=== PATIENT | female | born 1970 | race Hispanic/Latino ===

== ENCOUNTER 2018-06-12 05:26 | Inpatient (IN) | payer OTHER ==
[2018-06-12 06:14] LABS: Absolute Lymphocytes (CBC) 1.9 K/uL (0.7-4.9); Absolute Monocytes 0.3 K/uL (0.1-1.3); Absolute Neutrophil 4.1 K/uL (1.8-8.0); Basophils % 0.6 % (0-1.3); Hematocrit 41.7 % (36.0-45.0); Lymphocytes % 29.7 % (15.3-44.8); MCH 31.4 pg (27.0-35.0); MPV 9.9 fL (7.6-11.3); Monocytes % 4.8 % (3.3-12.3); RBC Red Blood Cell Count 4.53 M/uL (3.86-4.86)
[2018-06-12 06:37] LABS: Albumin 3.9 g/dL (3.4-5.0); Bilirubin Direct 0.1 mg/dL (0-0.2); Bilirubin Total 0.4 mg/dL (0.2-1.0); Magnesium 2.1 mg/dL (1.8-2.4); Protein, Total 7.5 g/dL (6.4-8.2); Troponin (Emerg Dept Use Only) 0.88 ng/mL (0.0-0.045)
[2018-06-12] MEDS ORDERED: ASPIRIN 81 MG CHEWABLE TABLET ONE (06:52)
[2018-06-12] MEDS ORDERED: ENOXAPARIN 100 MG/ML SYR SQ ONE (07:20)
[2018-06-12] MEDS ORDERED: PRASUGREL (EFFIENT) 10 MG TAB ONE (07:22)
--- NOTE | 2018-06-12 07:29 | ER ---
Nurse's Notes [facility] Name: Clare Lowry Age: 47 yrs Sex: Female : 1970 Arrival Date: 06/12/2018 Time: 05:27 Bed 17 Private MD: Diagnosis: Non-ST elevation (NSTEMI) myocardial infarction Presentation: 06/12 05:39 Presenting complaint: Patient states: "Tuesday I woke up and started having chest jd3 pains after drinking some coffee, this lasted about 15 min. Today I woke up and took some Mucinex daytime and I started having the chest pains again. I am also feeling nauseous. I moved some heavy stuff at work last week, but I wasn't sure if that could cause this or what.". Transition of care: patient was not received from another setting of care. Onset of symptoms was June 12, 2018. Risk Assessment: Do you want to hurt yourself or someone else? Patient reports no desire to harm self or others. Initial Sepsis Screen: Does the patient meet any 2 criteria? No. Patient's initial sepsis screen is negative. Does the patient have a suspected source of infection? No. Patient's initial sepsis screen is negative. Care prior to arrival: None. 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 jd3 Historical: - Allergies: 05:46 No Known Allergies; jd3 - Home Meds: 05:46 Zyrtec Oral [Active]; Flonase Nasal [Active]; jd3 - PMHx: 05:46 None; jd3 - PSHx: 05:46 None; jd3 - Immunization history:: Adult Immunizations up to date, Flu vaccine is up to date. - Social history:: Smoking status: Patient/guardian denies using tobacco. - Ebola Screening: : Patient negative for fever greater than or equal to 101.5 degrees Fahrenheit, and additional compatible Ebola Virus Disease symptoms. Screenin:50 Abuse screen: Denies threats or abuse. Nutritional screening: No deficits noted. jd3 Tuberculosis screening: No symptoms or risk factors identified. Fall Risk Ambulatory Aid- None/Bed Rest/Nurse Assist (0 pts). Gait- Normal/Bed Rest/Wheelchair (0 pts) Mental Status- Oriented to own ability (0 pts). Total Musa Fall Scale indicates No Risk (0-24 pts). Assessment: 05:48 General: Appears uncomfortable, Behavior is calm, cooperative, appropriate for age. jd3 Pain: Complains of pain in chest Pain does not radiate. Pain currently is 4 out of 10 on a pain scale. Quality of pain is described as pressure, Pain began suddenly. Neuro: Level of Consciousness is awake, alert, obeys commands, Oriented to person, place, time, situation, Appropriate for age. Cardiovascular: Heart tones S1 S2 present Capillary refill < 3 seconds Patient's skin is warm and dry. Rhythm is sinus rhythm. Respiratory: Airway is patent Respiratory effort is even, unlabored, Respiratory pattern is regular, symmetrical, Breath sounds are clear bilaterally. Denies shortness of breath. GI: Abdomen is round non-distended, Bowel sounds present X 4 quads. Abd is soft and non tender X 4 quads. Reports nausea, Patient currently denies abdominal pain, constipation, diarrhea, vomiting. : No signs and/or symptoms were reported regarding the genitourinary system. EENT: No signs and/or symptoms were reported regarding the EENT system. Derm: Skin is intact, Skin is dry, Skin is normal, Skin temperature is warm. Musculoskeletal: Circulation, motion, and sensation intact. Range of motion: intact in all extremities. 06:35 Reassessment: X-ray at bedside. jd3 06:35 Reassessment: Patient appears in no apparent distress at this time. Patient and/or jd3 family updated on plan of care and expected duration. Pain level reassessed. Patient is alert, oriented x 3, equal unlabored respirations, skin warm/dry/pink. 06:43 Reassessment: provider at bedside discussing plan of care with pt. jd3 07:00 Reassessment: RECD REPORT FROM ATTILA KEY. 47YO HF P/W CP AFTER DRINKING COFFEE. EKG bp UNREMARKABLE, INITIAL TROPONIN POSITIVE AT 0.88. DISPOSITION PENDING. VS STABLE ON MONITOR. 07:51 Reassessment: ADMIT IN PROCESS, BED REQUEST SUBMITTED. VS STABLE ON MONITOR, FAMILY AT bp B/S. Vital Signs: 05:46 BP 177 / 96; Pulse 88; Resp 16 S; Temp 99.2(O); Pulse Ox 97% on R/A; Weight 90.72 kg jd3 (R); Height 5 ft. 2 in. (157.48 cm) (R); Pain 4/10; 06:40 BP 155 / 93; Pulse 76; Resp 14 S; Pulse Ox 98% on R/A; Pain 4/10; jd3 07:00 BP 144 / 89; Pulse 80; Resp 16; Pulse Ox 96% ; bp 07:52 BP 153 / 90; Pulse 71; Resp 15; Pulse Ox 100% ; bp 08:55 BP 152 / 80; Pulse 73; Resp 13; Pulse Ox 100% ; bp 05:46 Body Mass Index 36.58 (90.72 kg, 157.48 cm) jd3 ED Course: 05:27 Patient arrived in ED. am2 05:29 Attila Watson, RN is Primary Nurse. jd3 05:36 Rolando Sue MD is Attending Physician. gs 05:44 Triage completed. jd3 05:47 Arm band placed on. EKG completed in triage. Results shown to MD. jd3 05:50 Patient has correct armband on for positive identification. Bed in low position. Call j light in reach. Side rails up X 1. Adult w/ patient. monitoring manager on. Pulse ox on. NIBP on. 05:50 Warm blanket given. jd3 05:51 Patient maintains SpO2 saturation greater than 95% on room air. jd3 06:05 Inserted saline lock: 20 gauge in right antecubital area, using aseptic technique. jd3 Blood collected. 06:07 Basic Metabolic Panel Sent. jd3 06:07 CBC with Diff Sent. jd3 06:07 LFT's Sent. jd3 06:08 Magnesium Sent. jd3 06:08 NT PRO-BNP Sent. jd3 06:08 Troponin (emerg Dept Use Only) Sent. jd3 06:43 XRAY Chest (1 view) In Process Unspecified. EDMS 06:49 Verbal reassurance given. jd3 06:57 Scooby Ramey PA is PHCP. jr8 07:28 Bozena Rojo MD is Hospitalizing Provider. jr8 09:12 No provider procedures requiring assistance completed. Patient admitted, IV remains in bp place. Administered Medications: 06:49 Drug: Aspirin Chewable Tablet 324 mg Route: PO; jd3 07:17 Follow up: Response: No adverse reaction bp 07:17 Drug: Lovenox 1 mg/kg Route: Sub-Q; Site: right lower abdomen; bp 07:53 Follow up: Response: No adverse reaction bp 07:17 Drug: Effient 60 mg Route: PO; bp 07:53 Follow up: Response: No adverse reaction bp Outcome: 07:28 Decision to Hospitalize by Provider. jr8 09:11 Admitted to Tele accompanied by tech, family with patient, via wheelchair, room 428, bp with chart, Report called to ZAIN KEY 09:11 Condition: stable 09:11 Instructed on the need for admit. 09:32 Patient left the ED. bp Signatures: Dispatcher [employer] EDMS Scooby Ramey PA PA jr8 Ct Ozuna Gregory, MD MD gs Davies, Jonathon, RN RN jd3 Soto Bustillos RN RN bp Corrections: (The following items were deleted from the chart) 05:51 05:48 Cardiovascular: Heart tones S1 S2 present Capillary refill < 3 seconds Patient's jd3 skin is warm and dry. Rhythm is regular jd3
--- NOTE | 2018-06-12 07:29 | EDPHYS ---
Physician Documentation [facility] Name: Clare Lowry Age: 47 yrs Sex: Female : 1970 Arrival Date: 06/12/2018 Time: 05:27 Bed 17 Private MD: ED Physician Rolando Sue HPI: 06/12 05:57 This 47 yrs old Female presents to ER via Ambulatory with complaints of Chest gs Pain. 05:57 The patient or guardian reports chest pain that is located primarily in the anterior gs chest wall. Onset: this morning, today. The pain does not radiate. Associated signs and symptoms: Pertinent negatives: shortness of breath. The chest pain is described as a heaviness. Duration: The patient or guardian reports multiple episodes, that have now resolved, the episodes last approximately 15 minute(s), had similar episode Tuesday lasted 15 minutes was different felt sob and was diaphoretic. Severity of pain: At its worst the pain was moderate in the emergency department the pain has resolved and did so just prior to arrival. 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 jd3 Historical: - Allergies: 05:46 No Known Allergies; jd3 - Home Meds: 05:46 Zyrtec Oral [Active]; Flonase Nasal [Active]; jd3 - PMHx: 05:46 None; jd3 - PSHx: 05:46 None; jd3 - Immunization history:: Adult Immunizations up to date, Flu vaccine is up to date. - Social history:: Smoking status: Patient/guardian denies using tobacco. - Ebola Screening: : Patient negative for fever greater than or equal to 101.5 degrees Fahrenheit, and additional compatible Ebola Virus Disease symptoms. ROS: 05:57 All other systems are negative. gs 16:53 Constitutional: Negative for fever, chills, and weight loss. jr8 16:53 Cardiovascular: Positive for chest pain. Exam: 05:57 Head/Face: Normocephalic, atraumatic. Eyes: Pupils equal round and reactive to light, gs extra-ocular motions intact. Lids and lashes normal. Conjunctiva and sclera are non-icteric and not injected. Cornea within normal limits. Periorbital areas with no swelling, redness, or edema. ENT: Nares patent. No nasal discharge, no septal abnormalities noted. Tympanic membranes are normal and external auditory canals are clear. Oropharynx with no redness, swelling, or masses, exudates, or evidence of obstruction, uvula midline. Mucous membranes moist. Neck: Trachea midline, no thyromegaly or masses palpated, and no cervical lymphadenopathy. Supple, full range of motion without nuchal rigidity, or vertebral point tenderness. No Meningismus. Chest/axilla: Normal chest wall appearance and motion. Nontender with no deformity. No lesions are appreciated. Cardiovascular: Regular rate and rhythm with a normal S1 and S2. No gallops, murmurs, or rubs. Normal PMI, no JVD. No pulse deficits. Respiratory: Lungs have equal breath sounds bilaterally, clear to auscultation and percussion. No rales, rhonchi or wheezes noted. No increased work of breathing, no retractions or nasal flaring. Abdomen/GI: Soft, non-tender, with normal bowel sounds. No distension or tympany. No guarding or rebound. No evidence of tenderness throughout. Back: No spinal tenderness. No costovertebral tenderness. Full range of motion. Skin: Warm, dry with normal turgor. Normal color with no rashes, no lesions, and no evidence of cellulitis. MS/ Extremity: Pulses equal, no cyanosis. Neurovascular intact. Full, normal range of motion. Neuro: Awake and alert, GCS 15, oriented to person, place, time, and situation. Cranial nerves II-XII grossly intact. Motor strength 5/5 in all extremities. Sensory grossly intact. Cerebellar exam normal. Normal gait. 05:57 Constitutional: The patient appears alert, awake. 05:57 ECG was reviewed by the Attending Physician. Vital Signs: 05:46 BP 177 / 96; Pulse 88; Resp 16 S; Temp 99.2(O); Pulse Ox 97% on R/A; Weight 90.72 kg jd3 (R); Height 5 ft. 2 in. (157.48 cm) (R); Pain 4/10; 06:40 BP 155 / 93; Pulse 76; Resp 14 S; Pulse Ox 98% on R/A; Pain 4/10; jd3 07:00 BP 144 / 89; Pulse 80; Resp 16; Pulse Ox 96% ; bp 07:52 BP 153 / 90; Pulse 71; Resp 15; Pulse Ox 100% ; bp 08:55 BP 152 / 80; Pulse 73; Resp 13; Pulse Ox 100% ; bp 05:46 Body Mass Index 36.58 (90.72 kg, 157.48 cm) jd3 MDM: 05:53 Patient medically screened. gs 05:57 Differential diagnosis: acute myocardial infarction, coronary artery disease pleurisy, gs pneumonia. Data reviewed: vital signs, nurses notes. Counseling: I had a detailed discussion with the patient and/or guardian regarding: the presence of at least one elevated blood pressure reading (>120/80) during this emergency department visit. Special discussion: I have referred the patient to see his PCP for further evaluation of high blood pressure. 06/12 05:56 Order name: Basic Metabolic Panel; Complete Time: 06:41 06/12 05:56 Order name: CBC with Diff; Complete Time: 06:41 06/12 05:56 Order name: LFT's; Complete Time: 06:41 06/12 05:56 Order name: Magnesium; Complete Time: 06:41 06/12 05:56 Order name: NT PRO-BNP; Complete Time: 06:41 06/12 05:56 Order name: Troponin (emerg Dept Use Only); Complete Time: 06:41 06/12 05:56 Order name: XRAY Chest (1 view); Complete Time: 08:03 06/12 05:56 Order name: EKG; Complete Time: 05:57 06/12 05:56 Order name: Cardiac monitoring; Complete Time: 06:03 06/12 05:56 Order name: EKG - Nurse/Tech; Complete Time: 06:04 06/12 05:56 Order name: IV Saline Lock; Complete Time: 06:06 06/12 05:56 Order name: Labs collected and sent; Complete Time: 06:06 06/12 05:56 Order name: O2 Per Protocol; Complete Time: 06:06 06/12 05:56 Order name: O2 Sat Monitoring; Complete Time: 06:07 gs EC:57 Rate is 79 beats/min. MN interval is normal. QRS interval is normal. QT interval is gs normal. T waves are Normal. No ST changes noted. Clinical impression: Abnormal EKG without significant change and LVH. Interpreted by me. Administered Medications: 06:49 Drug: Aspirin Chewable Tablet 324 mg Route: PO; jd3 07:17 Follow up: Response: No adverse reaction bp 07:17 Drug: Lovenox 1 mg/kg Route: Sub-Q; Site: right lower abdomen; bp 07:53 Follow up: Response: No adverse reaction bp 07:17 Drug: Effient 60 mg Route: PO; bp 07:53 Follow up: Response: No adverse reaction bp Disposition: 06/12/18 07:28 Hospitalization ordered by Bozena Rojo for Inpatient Admission. Preliminary diagnosis is Non-ST elevation (NSTEMI) myocardial infarction. - Bed requested for Telemetry/MedSurg (Inpatient). - Status is Inpatient Admission. bp - Condition is Stable. - Problem is new. - Symptoms have improved. UTI on Admission? No Signatures: Dispatcher [employer] EDMS Mary Baeza Josh, PA PA jr8 Rolando Sue MD MD gs Davies, Jonathon, RN RN jSoto Shea RN RN bp Corrections: (The following items were deleted from the chart) 08:47 07:28 Hospitalization Ordered by Bozena Rojo MD for Inpatient Admission. Preliminary bd diagnosis is Non-ST elevation (NSTEMI) myocardial infarction. Bed requested for Telemetry/MedSurg (Inpatient). Status is Inpatient Admission. Condition is Stable. Problem is new. Symptoms have improved. UTI on Admission? No. jr8 09:32 08:47 06/12/2018 07:28 Hospitalization Ordered by Bozena Rojo MD for Inpatient bp Admission. Preliminary diagnosis is Non-ST elevation (NSTEMI) myocardial infarction. Bed requested for Telemetry/MedSurg (Inpatient). Status is Inpatient Admission. Condition is Stable. Problem is new. Symptoms have improved. UTI on Admission? No. bd
--- NOTE | 2018-06-12 08:02 | RAD REPORT ---
EXAM DESCRIPTION: RAD - Chest Single View - 06/12/2018 6:43 am CLINICAL HISTORY: Chest pain COMPARISON: None. TECHNIQUE: AP portable chest image was obtained 0637 hours . FINDINGS: Lungs are clear. Heart and vasculature are normal. No measurable pleural effusion and no p neumothorax. No acute bony abnormality seen. No acute aortic findings suspected. IMPRESSION: No acute cardiopulmonary process.
[2018-06-12] MEDS ORDERED: MORPHINE 4 MG/ML SYR IV PRN (09:33)
[2018-06-12] MEDS ORDERED: ONDANSETRON 4 MG/2 ML VIAL IV PRN (09:33)
[2018-06-12] MEDS ORDERED: ACETAMINOPHEN 500 MG TAB PO PRN (09:33)
[2018-06-12] MEDS ORDERED: PANTOPRAZOLE 40MG TABLET PO ONE (09:55)
--- NOTE | 2018-06-12 10:02 | EKG ---
Test Date: 2018-06-12 Test Time: 05:47:35 Coil Binder: CHIVO MEASUREMENT RESULTS: Intervals: Rate: 79 TX: 178 QRSD: 84 QT: 388 QTc: 444 [place]: P: 23 TX: 178 QRS: -13 T: 61 INTERPRETIVE STATEMENTS: Normal sinus rhythm Voltage criteria for left ventricular hypertrophy Abnormal ECG No previous ECG available for comparison Electronically Signed On 06-12-18 10:01:34 CDT by Bebo Bob
[2018-06-12 12:44] LABS: Urine Appearance CLOUDY; Urine Bilirubin NEGATIVE (NEG); Urine Blood NEGATIVE (NEG); Urine Color YELLOW; Urine Glucose NEGATIVE (NEG); Urine Protein NEGATIVE (NEG); Urine pH 6.5 (5.0-7.0)
[2018-06-12 13:24] LABS: Urine Bacteria 20-50 /HPF (<20); Urine Culture Reflex Order REFLEXED; Urine RBC NONE SEEN /HPF (NONE SEEN)
[2018-06-12] MEDS ORDERED: CETIRIZINE HCL 5 MG TABLET PO PRN (13:24)
--- NOTE | 2018-06-12 14:59 | P.HP ---
Certification for Inpatient Patient admitted to: Inpatient With expected LOS: >2 Midnights Patient will require the following post-hospital care: None Practitioner: I am a practitioner with admitting privileges, knowledge of patient current condition, hospital course, and medical plan of care. Services: Services provided to patient in accordance with Admission requirements found in Title 42 Section 412.3 of the Code of Federal Regulations Patient History Date of Service: 06/12/18 Primary Care Provider: None Reason for admission: Chest pain History of Present Illness: This is a 47-year-old female with no significant past medical history who presented to the ED complaining of having some chest pain. Patient stated on Tuesday she started noticing that she was having some chest pain on the left side which was not radiating anywhere which is intermittent in nature. Patient was still and on the left side of the chest. Patient stated that she also had associated shortness of breath nausea and sweating at that time. Pain at that time however did resolve and patient went about doing her normal activities. This morning however pain returned and this patient decided to come to the ER for further workup. Patient denies having any fever chills abdominal pain or any other associated symptoms. In the ER patient was found to have elevated troponin with nonspecific EKG changes thus was admitted to the hospital for further workup Allergies No Known Allergies Allergy (Verified 06/12/18 10:44) Home Medications: Cetirizine HCl [Zyrtec*] 1 tab PO DAILYPRN PRN 06/12/18 Fluticasone [Flonase 50MCG Nasal [place]*] 2 sprays IH DAILYPRN PRN 06/12/18 Ibuprofen [Advil] 200 mg PO DAILYPRN PRN 06/12/18 - Past Medical/Surgical History Has patient received pneumonia vaccine in the past: No Diabetic: No -: seasonal allergies -: C- section x1 -: Tubal ligation - Family History Family History: Reviewed- Non-Contributory - Family History Mother -: Hypertension, Diabetes, Other (see notes) Notes: Thyroid problem - Social History Smoking Status: Never smoker Alcohol use: No CD- Drugs: No Caffeine use: Yes Place of Residence: Home Review of Systems 10-point ROS is otherwise unremarkable Physical Examination - Vital Signs Temperature: 98.1 F Blood Pressure: 166/85 Pulse: 89 Respirations: 17 Pulse Ox (%): 99 - Physical Exam General: Alert, In no apparent distress HEENT: Atraumatic, PERRLA, Mucous membr. moist/pink, EOMI, Sclerae nonicteric Neck: Supple, 2+ carotid pulse no bruit, No LAD, Without JVD or thyroid abnormality Respiratory: Clear to auscultation bilaterally, Normal air movement Cardiovascular: Regular rate/rhythm, Normal S1 S2 Gastrointestinal: Normal bowel sounds, No tenderness Musculoskeletal: No tenderness Integumentary: No rashes Neurological: Normal gait, Normal speech, Normal strength at 5/5 x4 extr, Normal tone, Normal affect Lymphatics: No axilla or inguinal lymphadenopathy - Studies Laboratory Data (last 24 hrs) 06/12/18 06:05: WBC 6.5, Hgb 14.3, Hct 41.7, Plt Count 175 06/12/18 06:05: Sodium 141, Potassium 4.0, BUN 14, Creatinine 0.70, Glucose 112 H, Magnesium 2.1, Total Bilirubin 0.4, AST 31, ALT 27, Alkaline Phosphatase 77 Assessment and Plan - Problems (Diagnosis) (1) NSTEMI (non-ST elevated myocardial infarction) Current Visit: Yes Status: Acute Plan: Chest pain with elevated troponin and Nonspecific Changes to the EKG -Cardiology consulted. appreciate Reccs -Cath Scheduled for kunal AM -Currently on BB, WB lovenox and Statin with ASA -cardiac tele Discharge Plan: Home Plan to discharge in: 48 Hours - Advance Directives Does patient have a Living Will: No Does patient have a Durable POA for Healthcare: No - Code Status/Comfort Care Code Status Assessed: Yes Critical Care: No
--- NOTE | 2018-06-12 15:32 | ECHO ---
HEIGHT: 5 ft 2 in WEIGHT: 200 lb oz DATE OF STUDY: 06/12/[address]: Jerry Ramey 2-DIMENSIONAL: YES M.MODE: YES DOPPLER: YES COLOR FLOW: YES TDS: NO PORTABLE: NO DEFINITY: NO BUBBLE STUDY: NO DIAGNOSIS: NSTEMI CARDIAC HISTORY: CATHERIZATION: NO SURGERY: NO PROSTHETIC VALVE: NO PACEMAKER: NO MEASUREMENTS (cm) DIASTOLIC (NORMALS) SYSTOLIC (NORMALS) IVSd 1.1 (0.6-1.2) LA Diam 3.7 (1.9-4.0) LVEF 72% LVIDd 3.1 (3.5-5.7) LVIDs 1.9 (2.0-3.5) %FS 40% LVPWd 1.1 (0.6-1.2) Ao Diam 2.8 (2.0-3.7) 2 DIMENSIONAL ASSESSMENT: RIGHT ATRIUM: NORMAL LEFT ATRIUM: NORMAL RIGHT VENTRICLE: NORMAL LEFT VENTRICLE: NORMAL TRICUSPID VALVE: NORMAL MITRAL VALVE: NORMAL PULMONIC VALVE: NORMAL AORTIC VALVE: NORMAL PERICARDIAL EFFUSION: NONE AORTIC ROOT: NORMAL LEFT VENTRICULAR WALL MOTION: NORMAL DOPPLER/COLOR FLOW: IMPAIRED LEFT VENTRICULAR RELAXATION, OTHERWISE NORMAL. COMMENTS: NORMAL 2D ECHOCARDIOGRAM. IMPAIRED LEFT VENTRICULAR RELAXATION. TECHNOLOGIST: Chema ARCHULETA
--- NOTE | 2018-06-12 15:51 | CON ---
CARDIOLOGY CONSULT History Of Present Illness: Ms. Lowry came to the hospital because of chest pain. She has actually had chest pain for 3 days intermittently. Her worst one was this morning; it felt like pressure in the upper part of her chest on Tuesday, it lasted for an hour or so. She did not seek medical atten tion then. Sometimes the pain is sharp, sometimes it is more pressure-like. Since she has been here in the hospital, her EKG does not show infarction, injury, or ischemia. There is borderline voltage for LVH. The troponin level is 0.88. She has no history of diabetes, hypertension, dyslipidemia. She uses no tobacco, takes no medications. Multigravida with a and a tubal ligation. No o ther past medical history. Allergies: SHE HAS NO ALLERGIES. Physical Examination: Vital Signs: 5 feet 2 inches, 200 pounds. HEENT: Normal. Carotids: No bruit. Lungs: Clear. Heart Exam: Within normal limits. Abdomen: Soft. Extremities: Normal distal pulses. Impression: The patient needs a cardiac cath. Three hours ago, she received of Lovenox. Since she is not having chest pain, we consider this an elective cath. Best thing is to let the Una enox be at least 12 hours off before we do it. We will keep her n.p.o. after midnight, give her the last dose of Lovenox tonight at 6, do a cardiac cath tomorrow. I will inform Dr. Luna about the p rocedure he will be asked to do. The patient seems to understand the procedure, its potential benefits, indications, risks, and agrees to proceed. BRISEYDA Voice ID: [id number] Report ID: [id number]
[2018-06-12] MEDS: ENOXAPARIN 100 MG/ML SYR SQ SCH (17:11)
[2018-06-12] MEDS: METOPROLOL TAR 25 MG TAB PO SCH (17:11)
[2018-06-12] MEDS ORDERED: METOPROLOL TAR 25 MG TAB PO SCH (18:00)
[2018-06-12] MEDS ORDERED: ATORVASTATIN 40 MG TAB PO SCH (21:00)
[2018-06-13 05:42] LABS: Absolute Lymphocytes (CBC) 1.7 K/uL (0.7-4.9); Absolute Monocytes 0.4 K/uL (0.1-1.3); Absolute Neutrophil 3.7 K/uL (1.8-8.0); Basophils % 0.5 % (0-1.3); Eosinophils % 1.5 % (0-4.4); Hematocrit 41.4 % (36.0-45.0); Lymphocytes % 29.3 % (15.3-44.8); MCV 91.9 fL (80-100); MPV 11.1 fL (7.6-11.3)
[2018-06-13] MEDS: METOPROLOL TAR 25 MG TAB PO SCH ×2 (05:57→16:57)
[2018-06-13] MEDS: ENOXAPARIN 100 MG/ML SYR SQ SCH ×2 (06:00→16:54)
[2018-06-13] MEDS ORDERED: PANTOPRAZOLE 40MG TABLET PO SCH (06:30)
[2018-06-13 06:58] LABS: Potassium 4.1 mmol/L (3.5-5.1)
[2018-06-13] MEDS ORDERED: NA CHLORIDE 0.9% 1,000 ML IV SCH (09:00)
[2018-06-13] MEDS ORDERED: PRASUGREL (EFFIENT) 10 MG TAB PO SCH (09:00)
[2018-06-13] MEDS ORDERED: ASPIRIN EC 81 MG TAB PO SCH (09:00)
[2018-06-13] MEDS ORDERED: HEPA 1000U/500MLS 1,000 UNIT/500 ML BAG IV ONE (10:39)
[2018-06-13] MEDS ORDERED: LIDOCAINE 1% MPF 30 ML VIAL ONE (10:39)
--- NOTE | 2018-06-13 12:01 | P.PN ---
Subjective Date of Service: 06/13/18 Primary Care Provider: None Chief Complaint: Chest pain Patient seen and examined at bedside. at bedside. Case discussed with nursing staff. Patient reports improved chest pain. She will be NPO after 9: 00 a.m. this morning pending a cardiac cath around 1 pm. No current complaints or concerns. Review of Systems 10-point ROS is otherwise unremarkable Physical Examination - Vital Signs Temperature: 98.3 F Blood Pressure: 136/81 Pulse: 69 Respirations: 16 Pulse Ox (%): 99 - Physical Exam General: Alert, In no apparent distress HEENT: Atraumatic, PERRLA, EOMI Neck: Supple, JVD not distended Respiratory: Clear to auscultation bilaterally, Normal air movement Cardiovascular: Regular rate/rhythm, Normal S1 S2 Gastrointestinal: Normal bowel sounds, No tenderness Musculoskeletal: No tenderness Integumentary: No rashes Neurological: Normal speech, Normal tone, Normal affect Lymphatics: No axilla or inguinal lymphadenopathy Assessment And Plan - Current Problems (Diagnosis) (1) NSTEMI (non-ST elevated myocardial infarction) Onset Date: 06/13/18 Current Visit: Yes Status: Acute Plan: Chest pain with elevated troponin and Nonspecific Changes to the EKG -Cardiology consulted. appreciate Reccs -pending cardiac catheterization this afternoon. - Lovenox held for cardiac catheterization. -continue on BB, and Statin with ASA
--- NOTE | 2018-06-13 12:34 | EKG ---
Test Date: 2018-06-13 Test Time: 07:57:06 Activities Attendant: ELSY MEASUREMENT RESULTS: Intervals: Rate: 72 MD: 182 QRSD: 80 QT: 394 QTc: 431 [place]: P: 34 MD: 182 QRS: -4 T: 84 INTERPRETIVE STATEMENTS: Normal sinus rhythm Moderate voltage criteria for LVH, may be normal variant Borderline ECG Compared to ECG 06/12/2018 05:47:35 No significant changes Electronically Signed On 06-13-18 12:32:53 CDT by Fernie Luna
[2018-06-13] MEDS ORDERED: FENTANYL CITR 100 MCG/2 ML ONE (12:48)
[2018-06-13] MEDS ORDERED: MIDAZOLAM HCL 2 MG/2 ML INJ ONE (12:48)
--- NOTE | 2018-06-13 16:52 | P.SSS ---
Patient History Date of Service: 06/13/18 Primary Care Provider: None Reason for admission: Chest pain History of Present Illness: This is a 47-year-old female with no significant past medical history who presented to the ED complaining of having some chest pain. Patient stated on Tuesday she started noticing that she was having some chest pain on the left side which was not radiating anywhere which is intermittent in nature. Patient was still and on the left side of the chest. Patient stated that she also had associated shortness of breath nausea and sweating at that time. Pain at that time however did resolve and patient went about doing her normal activities. This morning however pain returned and this patient decided to come to the ER for further workup. Patient denies having any fever chills abdominal pain or any other associated symptoms. Allergies No Known Allergies Allergy (Verified 06/12/18 10:44) Home Medications: Cetirizine HCl [Zyrtec*] 1 tab PO DAILYPRN PRN 06/12/18 Fluticasone [Flonase 50MCG Nasal [place]*] 2 sprays IH DAILYPRN PRN 06/12/18 Ibuprofen [Advil] 200 mg PO DAILYPRN PRN 06/12/18 - Past Medical/Surgical History Has patient received pneumonia vaccine in the past: No Diabetic: No -: seasonal allergies -: C- section x1 -: Tubal ligation - Family History Family History: Reviewed- Non-Contributory - Family History Mother -: Hypertension, Diabetes, Other (see notes) Notes: Thyroid problem - Social History Smoking Status: Never smoker Alcohol use: No CD- Drugs: No Caffeine use: Yes Place of Residence: Home Review of Systems 10-point ROS is otherwise unremarkable Physical Examination - Vital Signs Temperature: 97.8 F Blood Pressure: 160/83 Pulse: 71 Respirations: 18 Pulse Ox (%): 99 - Physical Exam General: Alert, In no apparent distress HEENT: Atraumatic, PERRLA, Mucous membr. moist/pink, EOMI, Sclerae nonicteric Neck: Supple, 2+ carotid pulse no bruit, No LAD, Without JVD or thyroid abnormality Respiratory: Clear to auscultation bilaterally, Normal air movement Cardiovascular: Regular rate/rhythm, Normal S1 S2 Gastrointestinal: Normal bowel sounds, No tenderness Musculoskeletal: No tenderness Integumentary: No rashes Neurological: Normal gait, Normal speech, Normal strength at 5/5 x4 extr, Normal tone, Normal affect Lymphatics: No axilla or inguinal lymphadenopathy - Diagnosis (Problem(s)) (1) NSTEMI (non-ST elevated myocardial infarction) Onset Date: 06/13/18 Current Visit: Yes Status: Acute Treatment Summary: The patient was admitted with chest pain. She had elevated troponin and nonspecific changes on the EKG. Cardiology was consulted. She was taken to the cardiac catheterization lab this afternoon required no stenting or other interventions. At the time of discharge, patient without any chest pain, shortness of breath, diaphoresis or dizziness or any other symptoms. She is to follow up with resident care director in 2 weeks and her primary care physician in 1 week. She is to continue her aspirin. - Disposition Discharge Date: 06/13/18 Disposition: ROUTINE DISCHARGE Condition: GOOD Patient Discharge Instructions: Please follow up with the primary care physician in 1 week. Please follow up with resident care director in 1-2 weeks. Diet: AHA Activity: Ad tucker
--- NOTE | 2018-06-14 00:03 | OP ---
Date of Procedure: 06/13/2018 Surgeon: Fernie Luna MD Admitted to Dr. Rojo on 06/12/2018 for chest pain, positive troponin. She was scheduled for a heart catheterization today on 06/13/2018 as an inpatient. Procedure: Left heart catheterization, selective coronary arteriogram, left ventriculogram. Findings: Normal coronaries, normal EF, normal LVEDP, hypertension, LVH. A 6-Armenian sheath were use d, 6-Armenian catheters were used. A 6-Armenian sheath introduced in the right common femoral artery. A ngio-Seal was used to close the case. A 4 mg of Versed and 50 of fentanyl was used for sedation. Blood Loss: 5 cc. Complications: No complication. Postoperative Diagnoses: Normal coronaries, left ventricular hypertrophy, hypertension. Plan: Plan for medical therapy. Co-power shovel operator: Rosina Logan. Total Conscious Sedation: 30 minutes. HENNA/JILL Voice ID: [id number] Report ID: [id number]
== END 2018-06-13 18:11 | disposition home or self-care (01) | DRG 282 ==
LOC: ER 05:26 → ERHOLD 07:52 → 4TH 09:12
PROVIDERS: ADMIT Family Medicine; ATTEND Family Medicine
PROC: 4A023N7 Measurement of Cardiac Sampling and Pressure, Left Heart, Percutaneous Approach (ICD-10-PCS; principal; 2018-06-13)
PROC: B211YZZ Fluoroscopy of Multiple Coronary Arteries using Other Contrast (ICD-10-PCS; 2018-06-13)
PROC: B215YZZ Fluoroscopy of Left Heart using Other Contrast (ICD-10-PCS; 2018-06-13)
DX: I21.4 Non-ST elevation (NSTEMI) myocardial infarction (principal); I51.7 Cardiomegaly; I10 Essential (primary) hypertension
CPT/HCPCS: 36415; 71045; 80048; 80061; 80076; 81001; 83036; 83735; 83880; 84484; 85025; 87070; 87081; 87086; 87088; 87804; 93005; 93306; 93458; 96372; 99285; C1760; C1893; J1650; J2250; J3010; J7030